=== PATIENT | male | born 1980 | race Caucasian/White ===

== ENCOUNTER 2022-07-27 00:28 | Emergency (ER) | payer SELFPAY ==
[2022-07-27] MEDS ORDERED: KETOROLAC 30 MG/ML INJ ONE (01:45)
[2022-07-27 03:24] VITALS: BP 169/107; TEMP 97.7; O2SAT 100
--- NOTE | 2022-07-27 12:32 | RAD REPORT ---
EXAM DESCRIPTION: RAD - Shoulder Left 2 View - 07/27/2022 1:21 am CLINICAL HISTORY: Pain COMPARISON: None. TECHNIQUE: Left Shoulder 2 Views FINDINGS: No fracture or dislocation. No significant sclerotic/lytic bone lesion. Joint spaces unremarkable. Soft tissues unremarkable. IMPRESSION: Normal left shoulder Radiographs. Electronically signed by: Ivan Barnhart MD 07/27/2022 1:41 AM [employer] Due to temporary technical issues with the PACS/Fluency reporting system, reports are being signed by the in house radiologists without review as a courtesy to insure prompt reporting. The interpreting radiologist is fully responsible for the content of the report.
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
== END 2022-07-27 03:06 | disposition home or self-care (01) ==
LOC: ER 00:28
DX: M25.512 Pain in left shoulder (principal)
CPT/HCPCS: 96372; 99283

== ENCOUNTER 2022-10-03 20:21 | Emergency (ER) | payer SELFPAY ==
[2022-10-03] MEDS ORDERED: IBUPROFEN 400 MG TAB ONE (20:52)
[2022-10-03] MEDS ORDERED: HYDROCODONE/APAP 7.5/325 MG TAB ONE (20:52)
--- NOTE | 2022-10-03 22:25 | RAD REPORT ---
EXAM DESCRIPTION: RAD - Shoulder Left 2 View - 10/03/2022 9:25 pm CLINICAL HISTORY: PAIN COMPARISON: Shoulder Left 2 View dated 07/27/2022 TECHNIQUE: Internal and external rotation views of the left shoulder were obtained. FINDINGS: There is no fracture or dislocation. AC joint is normal in appearance. No acute or suspici ous findings. IMPRESSION: Negative two-view left shoulder examination.
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
[2022-10-03] MEDS ORDERED: lisinopriL 20 MG TAB ONE (22:43)
[2022-10-03 23:26] VITALS: TEMP 98
[2022-10-03 23:31] VITALS: BP 156/118; O2SAT 98
== END 2022-10-03 22:42 | disposition home or self-care (01) ==
LOC: ER 20:21
DX: M25.512 Pain in left shoulder (principal); I11.9 Hypertensive heart disease without heart failure; F17.210 Nicotine dependence, cigarettes, uncomplicated